=== PATIENT | male | born 1945 | race Caucasian/White ===

== ENCOUNTER 2016-10-09 12:02 | Day surgery (SDC) | payer OTHER ==
[~2016-10-09] VITALS: Ht 180.3 cm; Wt 113.4 kg
[~2016-10-09 12:02] MED LIST: ATEN25TA PO; CHOL10008 PO; CYCL5TAB PO; DILT240C45 PO; LISI1TAB9 PO; Lactated Ringer's 1,000 ML IV SCH; POTA10TA12 PO; PRAV40TA PO; WARF5TAB7 PO; [UNRECOGNIZED DRUG - CODE] MC
[2016-10-09] MEDS ORDERED: Propofol 10,000 mCg/mL 20 mL Inj ONE (12:03)
[2016-10-09 12:18] VITALS: BP 146/93; PULSE 74; RESP 18; O2SAT 96
[2016-10-09] MEDS ORDERED: Lactated Ringer's 1,000 ML IV SCH (14:06)
--- NOTE | 2016-10-09 14:06 | PCM.HPANE ---
Patient Data Date of Service: Oct 09, 2016 Surgeon Admitting Provider: Attending Provider:Michael Agrueta MD Primary Care Physician:Shabana Other Provider:Raza Case Anesthesia Reason for Visit Polyp Of Colon Ht/WT & BMI Height (Feet): 5 Height (Inches): 11 Weight (Kilograms): 113.4 Body Mass Index 35.00 Allergies Coded Allergies: No Known Allergies (Verified , 05/30/09) Past Anesthesia History Anesthesia History: Positive for:: Anesthesia Reactions (NAUSEA), Denies:: Abnormal Airway, Difficult Intubation, Fam Anesthesia Reaction, Fam Malignant Hypertherm, Malignant Hyperthermia Diabetes History Hx Diabetes?: Yes Current Bedside Blood Glucose: 90 MRSA MRSA: No Medications Blood Thinner: Coumadin Last Dose Blood Thinner: Oct 04, 2016 Home Meds Incl Beta Luis: Yes Date Beta Luis Taken: Oct 09, 2016 Time Beta Luis Taken: 0600 Reported Medications Warfarin Sodium 5 Mg Tablet5 Mg PO DAILY 30 Days Ref 0 10/07/16 Pravastatin 40 Mg Jcnwys39 Mg PO DAILY Ref 0 10/07/16 Potassium Chloride ER 10 Meq Ofcmtb49 Meq PO DAILY Ref 0 TAKE WITH FOOD 10/07/16 Magnesium Oxide 2,500 Gm Powder2,500 Gm MC 10/07/16 Lisinopril / HCTZ 20-12.5 mg 1 Each Tablet1 Each PO DAILY Ref 0 10/07/16 Diltiazem ER (Dilt XR)240 Mg Cap.er.pug329 Mg PO DAILY Ref 0 10/07/16 Cyclobenzaprine 5 Mg Tablet5 Mg PO TID PRN Spasm 10/07/16 Cholecalciferol (Vitamin D3) (Vitamin D3)1,000 Unit Tab.chew1,000 Unit PO 10/07/16 Atenolol 25 Mg Ksugxr38 Mg PO DAILY #30 TABLET Ref 0 10/07/16 Discontinued Reported Medications Warfarin Inactive Drug Do Not Use (Coumadin Inactive Drug Do Not Use)5 Mg Tablet5 Mg PO DAILY Ref 0 06/05/09 Diltiazem-Expunged Drug, Do Not Renew! (Diltiazem CD-Expunged Drug, Do Not Renew !)240 Mg Cap.sr.68r060 Mg PO DAILY Ref 0 06/05/09 Digoxin-Expunged Drug, Do Not Renew! 125 Mcg Jbzqrj848 Mcg PO DAILY Ref 0 06/05/09 Potassium Chl-Expunged Drug, Do Not Renew! (O-VPS-Dyumyhnw Drug, Do Not Renew!) 20 Meq Tabsr40 Meq PO DAILY Ref 0 06/05/09 INSULIN GLARGINE-Expunged Drug, Do Not Renew! (Lantus-Expunged Drug, Do Not Renew!)100 Unit/1 Ml Vial45 U SQ before bed Ref 0 06/05/09 Insulin Regular-Expunged Drug, Do Not Renew! (Humulin R-Expunged Drug, Do Not Renew!)100 U/Ml Vial10 U IJ before dinner Ref 0 06/05/09 Insulin Regular-Expunged Drug, Do Not Renew! (Humulin R-Expunged Drug, Do Not Renew!)100 U/Ml Vial12 U IJ before lunch Ref 0 06/05/09 Insulin Regular-Expunged Drug, Do Not Renew! (Humulin R-Expunged Drug, Do Not Renew!)100 U/Ml Vial12 U IJ before breakfast Ref 0 06/05/09 History History of ENT Problems?: No HEENT History: Positive for:: Hearing Problem ([place], W/ INTERMITTENT HEARING AIDE USE) Denies:: Abnormal Airway Difficult Intubation Dysphagia Denture Type: Full- Upper Partial- Lower Teeth Condition: Within Normal Limits Hx of Heart Problems?: Yes Cardiovascular History: Positive for:: Atrial Fibrillation Hypertension Denies:: AICD Chest Pain Pacemaker Valvular Heart Disease Hx of Respiratory Problem?: Yes Respiratory History: Denies:: Asthma COPD Cough Hemoptysis Pneumonia Tuberculosis Other Resp Pertinent History: HX OF DAILY [employer] USE Hx Neurologic Problems?: Yes Neurological History: Positive for:: Dizziness Denies:: CVA Hx of GI Problems?: Yes Gastrointestinal History: Positive for:: Cirrhosis Hx of Problems?: No HX of Peritoneal Dialysis: No Hx Musculoskeletal Problems?: No Musculoskeletal History: Denies:: Fibromyalgia Joint Replacement Hx of Psycho/Social Problems?: Yes Psycho Social History: Denies:: Anxiety Hx Depression Hx Surgeries?: Yes (R TRIGGER FINGER, VASECTOMY, LIVER BIOPSY) Hx Any Other Health Problems?: Yes Other History: Positive for:: Hospitalization History Blood Transfusions: Denies:: Blood Transfuse Reaction Blood Transfusions Hx Diabetes: YesBedside Blood Glucose: 90 Hx Alcohol Use: Yes (significant past history)Hx Substance Use: No Smoking Status: Current Every Day Smoker Stop/Bang Treated for Sleep Apnea?: No Do You Have a CPAP Machine?: No S-Snoring: Do You Snore Loudly: Yes T-Tired: feel tired, fatigued: No O-Obsered: Observed not breath: No P-Blood Pressure: treated: Yes B- Body Mass Index > 35 kg/m2: Yes A- Age over 50: Yes N- Neck Large Circumference: No G- Gender Male: Yes SAM Total Score: 5 SAM Risk Assessment: High Risk, =/>3 Yes SAM Category 4 OutPt Procedure: Yes Risk Assessment Category Category 1A: Patient has history of documented sleep apnea, and HAS NOT received any narcotic, sedative or anesthesia administration during this stay. Category 1B: Patient has history of documented sleep apnea, and HAS received any narcotic , sedative or anesthesia administration during this stay Category 2: Patient has SUSPECTED Obstructive Sleep Apnea, and HAS received any narcotic , sedative or anesthesia administration during this stay. Category 3: Patient has SUSPECTED Obstructive Sleep Apnea and HAS NOT received narcotic, sedative or anesthesia administration during this stay. Category 4: Outpatient in Procedural Areas with known sleep apnea or who screen positive for High Risk via the STOP/BANG questionnaire. Exam Exam Vital Signs Vital Signs Date Time Temp Pulse Resp B/P Pulse Ox O2 Delivery O2 Flow Rate FiO2 10/09/16 12:18 74 18 146/93 96 Room Air General Appearance: Alert, Oriented X3, Cooperative HEENT/AIRWAY: MP 3 Lungs: Clear to Auscultation, Normal Air Movement Heart: Normal S1, Normal S2 Meds/Labs/Diagnostics Bedside Blood Glucose: 90 Plan Impression Patient chart reviewed, patient interviewed and anesthestic plan with risks, benefits, and alternatives discussed, and informed consent obtained. NPO per Anesth. Guidelines: Yes (at 2pm (clears at 12 pm)) ASA Physical Status: ASA3 Severe Disease Anesthetic Plan: MAC Bene/Risks/Altern/Consents: Yes HP Complete Prior to Induction: Yes Rahat Baxter MD Oct 09, 2016 12:43
[2016-10-09] MEDS ORDERED: Ondansetron 2 mg/mL 2 mL Inj IVPUSH PRN (14:10)
[2016-10-09] MEDS ORDERED: MetoCLOpramide 5 mg/mL 2 mL Inj IVPUSH PRN (14:10)
--- NOTE | 2016-10-09 14:39 | PCM.ENDCOL ---
Colonoscopy Date of Service: Oct 09, 2016 Physician Michael Argueta MD Pre Procedure Diagnosis: Screening procedures for colon polyp Post Procedure Dx & Findings: Polyp hemorrhoids diverticula Procedure Colonoscopy PROCEDURE IN DETAIL: Prep adequate Withdrawal time 11 minutes After unremarkable rectal examination the Olympus video colonoscope was inserted patient's anal canal and was advanced to cecum. Landmarks were identified including the ileocecal valve and appendiceal orifice. Scope was withdrawn systematically. Visualized colonic mucosa showed healthy shiny mucosa with normal healthy-appearing vasculature. In the transverse colon, there was a 2 mm polyp which is removed completely using cold snare. In the descending colon there was a 3 mm polyp which was resected completely using cold snare. In the sigmoid colon there was a 4 mm polyp which was removed completely using cold snare. Multiple diverticuli noted from the distal sigmoid to the proximal transverse colon. These were about medium size. In the rectum retroflexion was done which showed hemorrhoids. Anal canal was inspected carefully on the way out and hemorrhoids noted. Impression Polyps 3 status post complete removal Diverticuli Hemorrhoids Recommendation Repeat colonoscopy 3 years Diverticular diet Presedation Assessment Risks and Benefits Informed consent was obtained from the patient after all risks and benefits including but not limited to drug reaction, infection, pain, bleeding, perforation, as well as alternatives were discussed. Patient monitoring Continuous pulse oximetry, cardiac monitoring, blood pressure monitoring, IV access, and oxygen at 2L per nasal cannula. Complications There were no periprocedural complications identified. Post Procedure Plan Post Procedure Recommendations 1. Restrict activities today. 2. Resume normal activities in the morning. 3. Resume medications. 4. Patient informed of normal post procedure side effects as bloating, drowsiness, blood streaking in the stool. 5. average risk CRCS. If colon polyps come back as: -Hyperplastic- can repeat colonoscopy in 10 years -Tubular adenoma- repeat colonoscopy in 5 years -Tubulovillous/villous adenoma- repeat colonoscopy in 3 years -If any dysplasia- return to clinic as soon as possible 6. Please don't hesitate to call me with any questions. Michael Argueta MD Oct 09, 2016 14:39
[2016-10-09 14:40] VITALS: BP 113/71; PULSE 68; RESP 16; O2SAT 94
--- NOTE | 2016-10-09 14:49 | PCM.ANEP1 ---
Post Anesthesia PACU Phase 1 Assessment Date of Service: Oct 09, 2016 Vital Signs Vital Signs Date Time Temp Pulse Resp B/P Pulse Ox O2 Delivery O2 Flow Rate FiO2 10/09/16 14:40 68 16 113/71 94 Room Air 10/09/16 12:18 74 18 146/93 96 Room Air Anesthetic Administered: MAC Level of Alertness: Sleepy, easy to arouse PERSON's with Equal Strength: Yes Pain: No Nausea or Vomiting: No CV Function & Hydration Stable: Yes Airway Device: Lungs: Normal Air Movement PACU Phase 2 Assessment Complications: No Follow up Care: No Patient Instructions Provided: N/A Rahat Baxter MD Oct 09, 2016 14:49
[2016-10-09 14:50] VITALS: BP 107/73; PULSE 65; RESP 16; O2SAT 95
[2016-10-09 14:59] VITALS: BP 124/79; PULSE 60; RESP 16; O2SAT 97
[2016-10-09 15:03] LABS: Mean Corpuscular Hemoglobin 30.5 pg (27.0-35.0); Mean Corpuscular Volume 87.3 fL (81-100)
--- NOTE | 2016-10-14 11:10 | PATH ---
SURGICAL PATHOLOGY Attending Physician:Michael Argueta M.D. CASE STATUS: Signed Out PATIENT NAME: MOSES ROJAS PID: [id number] : 1945 DATE COLLECTED:10/09/2016 00:00 SPECIMEN: 1: Colon, Polyp 2: Colon, Polyp 3: Colon, Polyp CLINICAL HISTORY: 1). TRANSVERSE POLYP 2). DESCENDING POLYP 3). SIGMOID POLYP FINAL DIAGNOSIS: 1.TRANSVERSE COLON POLYP: BENIGN COLONIC MUCOSA CONSISTENT WITH POLYPOID REDUNDANCY. No evidence of malignancy or dysplasia. 2.DESCENDING COLON POLYP: TUBULAR ADENOMA. 3.SIGMOID COLON POLYP: TUBULAR ADENOMA. ICD10 D12.6 GROSS DESCRIPTION: The specimens are received in formalin, labeled with the patient's name, and sublabeled as the following: (1) transverse polyp; (2) descending polyp; (3) sigmoid polyp. (1) The specimen consists of a fragment of morel-white glistening translucent tissue (0.3 x 0.2 x <0.1 cm) . Section code: (1A) tissue. Specimen entirely submitted. (2) The specimen consists of a santacruz-white glistening rubbery sessile polyp (0.5 x 0.4 x 0.3 cm). Ink code: black-resection margin. Section code: (2A) polyp, bisected. The specimen is entirely submitted. (3) The specimen consists of a santacruz-white glistening rubbery sessile polyp (0.6 x 0.5 x 0.3 cm). Ink code: black-resection margin. Section code: (3A) polyp, bisected. The specimen is entirely submitted. 10/11/16 JM MICRO DESCRIPTION: See diagnosis. ICD-9 CODES: CPT CODES: 1: 03666 2: 71238 3: 50032 Electronically Signed Out Abrahan Cadena MD [facility] Pathology [facility] [place] [address] Technical component performed at [facility], [facility] [address], [address]
== END 2016-10-09 23:59 | disposition home or self-care (01) ==
LOC: END 12:02
PROVIDERS: ATTEND Internal Medicine
DX: Z12.11 Encounter for screening for malignant neoplasm of colon (principal); Z86.010 Personal history of colon polyps; D12.4 Benign neoplasm of descending colon; D12.5 Benign neoplasm of sigmoid colon; K63.5 Polyp of colon; K64.9 Unspecified hemorrhoids; K57.30 Diverticulosis of large intestine without perforation or abscess without bleeding; K70.30 Alcoholic cirrhosis of liver without ascites; I10 Essential (primary) hypertension; I48.91 Unspecified atrial fibrillation; E55.9 Vitamin D deficiency, unspecified; E78.5 Hyperlipidemia, unspecified; E03.9 Hypothyroidism, unspecified; E11.9 Type 2 diabetes mellitus without complications; B18.2 Chronic viral hepatitis C; K76.6 Portal hypertension; K31.89 Other diseases of stomach and duodenum; E66.3 Overweight; F10.21 Alcohol dependence, in remission; F17.210 Nicotine dependence, cigarettes, uncomplicated; F12.90 Cannabis use, unspecified, uncomplicated; Z68.35 Body mass index [BMI] 35.0-35.9, adult; Z79.01 Long term (current) use of anticoagulants
CPT/HCPCS: 36415; 45385; 85027; J7120